=== PATIENT | male | born 1965 | race American Indian/Alaskan Native ===

== ENCOUNTER 2020-02-26 05:52 | Day surgery (SDC) | payer OTHER ==
[2020-02-26] MEDS ORDERED: MIDAZOLAM 2 MG/2 ML INJ IV NR (06:00)
[2020-02-26] MEDS ORDERED: ceFAZolin/Water 2 GM/20 ML 2 GM/20 ML SYRINGE IV NR (06:00)
[2020-02-26] MEDS ORDERED: LACTATED RINGERS 1,000 ML IV SCH (06:00)
[2020-02-26] MEDS ORDERED: BACTERIOSTATIC SODIUM CHLORIDE 0.9% 30 ML VIAL INFILTRATI ONE (06:25)
--- NOTE | 2020-02-26 06:44 | Anesthesia Day of Surgery ---
Anesthesia Day of Surgery - Day of Surgery Patient Examined: Yes Patient H&P Reviewed: Yes Patient is NPO: Yes Beta Blockers: No Cardiac Clearance: No Pulmonary Clearance: No Quang's Test: N/A
--- NOTE | 2020-02-26 06:46 | Anesthesia Consultation ---
Anesthesia Consult and Med Hx Date of service: 02/26/20 - Airway Anesthetic Teeth Evaluation: Poor, Chipped ROM Head & Neck: Adequate Mental/Hyoid Distance: Adequate Mallampati Class: Class III Intubation Access Assessment: Probably Good - Pulmonary Exam CTA: Yes - Cardiac Exam Cardiac Exam: RRR - Pre-Operative Health Status ASA Pre-Surgery Classification: ASA2 Proposed Anesthetic Plan: General Nerve Block: Pop - Pre-Anesthesia Comment Pre-Anesthesia Comments: surgeon discretion on block type - Pulmonary Hx Smoking: Yes (STOPPED X 10 YRS) Hx Sleep Apnea: No (PEDRITO PRE SCREEN HIGH RISK) - Cardiovascular System Hx Hypertension: Yes (X 2 YRS) Hx Heart Attack/AMI: No Hx Angina: No - Central Nervous System Hx Psychiatric Problems: No - Gastrointestinal Hx Gastroesophageal Reflux Disease: No - Endocrine Hx Renal Disease: No Hx Insulin Dependent Diabetes: No Hx Non-Insulin Dependent Diabetes: Yes - Other Systems Hx Cancer: No - Additional Comments Anesthesia Medical History Comments: cataracts
[2020-02-26] MEDS ORDERED: NALOXONE 0.4 MG/1 ML INJ IV PRN (06:47)
[2020-02-26] MEDS ORDERED: oxyCODONE /ACETAMINOPHEN 5-325MG TAB PO PRN (06:47)
[2020-02-26] MEDS ORDERED: MEPERIDINE 25 MG/1 ML INJ IV PRN (06:47)
[2020-02-26] MEDS ORDERED: fentaNYL 100 MCG/2 ML INJ IV PRN (06:47)
[2020-02-26] MEDS ORDERED: ONDANSETRON 4 MG/2 ML INJ IV PRN (06:47)
[2020-02-26] MEDS ORDERED: fentaNYL 100 MCG/2 ML INJ ONE (07:09)
[2020-02-26] MEDS ORDERED: propofoL 200 MG/20 ML VIAL IV ONE (07:10)
[2020-02-26] MEDS ORDERED: LIDOCAINE MPF (2%) 20 MG/1 ML VIAL 5 ML ONE (07:11)
[2020-02-26] MEDS ORDERED: BACITRACIN ZINC OINT 28.4 GM TP ONE ×2 (07:37→07:38)
[2020-02-26] MEDS ORDERED: GENTAMICIN 40 MG/ML VIAL 2 ML ONE (07:37)
[2020-02-26] MEDS ORDERED: BUPIVACAINE/PF (0.25%) 2.5 MG/ML 30 ML VIAL INFILTRATI ONE (07:37)
[2020-02-26] MEDS ORDERED: LIDOCAINE (1%) 10 MG/1 ML VIAL 20 ML MDV ONE (07:37)
[2020-02-26] MEDS ORDERED: MIDAZOLAM 2 MG/2 ML INJ ONE (07:45)
[2020-02-26] MEDS ORDERED: ONDANSETRON 4 MG/2 ML INJ ONE (07:56)
[2020-02-26] MEDS ORDERED: KETOROLAC 30 MG/1 ML INJ ONE (07:56)
[2020-02-26 09:58] VITALS: BP 112/70
--- NOTE | 2020-02-26 10:41 | Post Anesthesia Evaluation ---
- Post Anesthesia Evaluation Patient Participated: Yes Airway Patent: Yes Stable Respiratory Function: Yes Nausea/Vomiting: No Temp > 96.8F: Yes Pain Manageable: Yes Adequeate Hydration: Yes Anesthesia Complications: No
--- NOTE | 2020-03-04 11:18 | Operative Report ---
PREOPERATIVE DIAGNOSIS: Aggressive soft tissue mass unknown, left foot. POSTOPERATIVE DIAGNOSIS: Aggressive soft tissue mass unknown, left foot. PROCEDURE: Aggressive excision of unknown soft tissue mass with transition of the flap, left foot. ANESTHESIA: Local with monitored anesthesia care. TOURNIQUET: Pneumatic ankle tourniquet, left ankle. ESTIMATED BLOOD LOSS: Less than 10 mL. DESCRIPTION OF PROCEDURE: The patient was brought into the operating room, placed on the operating table, placed on the table in a supine position. After intravenous sedation, the patient was given 2 grams of Ancef prophylactically. At this time, a well-padded pneumatic ankle tourniquet was placed 2-3 cm proximal to both the lateral and medial malleoli. At this time, the surgery was begun after careful local anesthesia consisting of 12 mL of 1:1 mixture of 1% lidocaine plain plus 0.5% Marcaine plain being infiltrated into the affected site. At this time, the foot was then scrubbed, prepped and draped in the usual aseptic manner and thus the procedure was begun. At this time, an Esmarch was used to exsanguinate the foot and the tourniquet was set at 250 mmHg. At this time, 2 nodules in nature was noted at the plantar medial arch of the left foot prominent nonmobile with use of skin scribe. A lazy S incision was thus made approximately 8 cm in length. At this time with the use of a 10-blade, careful dissection was used to make the initial incision with care being taken to cauterize all vessels as needed. At this time, careful dissection was down to the deep fascia and a long plantar ligament and 2 large nonmobile masses were identified, rubbery in nature, dark to light green in color, was dissected and removed from the operative field. Let it be noted, deep cultures was performed, aerobic, anaerobic and fungal and specimens were sent to the laboratory for both identification ____. At this time, there was noted to be a deficit. The area was pulse lavaged with gentamicin mix and due to the substantial in nature and location of the mass, the skin was manipulated in which it was transposition distally to incorporate the defect. At this time, both 3-0 and 4-0 Prolene was thus used after deep closure with 3-0 and 4-0 Vicryl. The area was reapproximated with both horizontal and simple interrupted stitches. A 1 mL of dexamethasone phosphate was infiltrated into the affected area. The area was dressed with Adaptic after bacitracin ointment was applied, Akira Kerruby and Coban. Pneumatic ankle tourniquet was deflated. A prompt hyperemic response was noted to all digits of the affected foot after deflation of the tourniquet. The patient will be placed in a walking boot or surgical shoe, will be transferred to recovery with vital signs will be monitored. The patient will be discharged home with both written and oral postoperative instructions. JOB# [id number] TOMMIE/LISA
== END 2020-02-26 05:53 | disposition home or self-care (01) ==
LOC: OR 05:52
PROVIDERS: ATTEND Podiatrist Foot & Ankle Surgery
DX: M79.89 Other specified soft tissue disorders (principal); M72.2 Plantar fascial fibromatosis; Z20.828 Contact with and (suspected) exposure to other viral communicable diseases; I10 Essential (primary) hypertension; E11.9 Type 2 diabetes mellitus without complications; Z98.890 Other specified postprocedural states; Z91.040 Latex allergy status; Z79.899 Other long term (current) drug therapy; Z79.84 Long term (current) use of oral hypoglycemic drugs; Z87.891 Personal history of nicotine dependence; Z88.8 Allergy status to other drugs, medicaments and biological substances; Z98.49 Cataract extraction status, unspecified eye
CPT/HCPCS: 28060; 82962; 87075; 87116; 88305; 88341; 88342; J0690; J1580; J1885; J2250; J2405; J2704; J3010; J7120; U0003; 88307

== ENCOUNTER 2020-03-13 05:57 | Day surgery (SDC) | payer OTHER ==
[2020-03-13] MEDS ORDERED: MIDAZOLAM 2 MG/2 ML INJ IV NR (06:00)
[2020-03-13] MEDS ORDERED: LACTATED RINGERS 1,000 ML IV SCH (06:00)
[2020-03-13] MEDS ORDERED: ceFAZolin/STERILE WATER 2 GM/20 ML SYRINGE IV NR (06:27)
[2020-03-13] MEDS ORDERED: BACTERIOSTATIC SODIUM CHLORIDE 0.9% 30 ML VIAL INFILTRATI ONE (06:31)
[2020-03-13] MEDS ORDERED: BUPIVACAINE/PF (0.25%) 2.5 MG/ML 30 ML VIAL INFILTRATI ONE ×2 (07:10→08:29)
[2020-03-13] MEDS ORDERED: LIDOCAINE (1%) 10 MG/1 ML VIAL 20 ML MDV ONE (07:10)
[2020-03-13] MEDS ORDERED: BACITRACIN ZINC OINT 28.4 GM TP ONE (07:10)
[2020-03-13] MEDS ORDERED: GENTAMICIN 40 MG/ML VIAL 2 ML ONE (07:12)
[2020-03-13] MEDS ORDERED: LIDOCAINE MPF (2%) 20 MG/1 ML VIAL 5 ML ONE (07:21)
[2020-03-13] MEDS ORDERED: ONDANSETRON 4 MG/2 ML INJ ONE (07:21)
[2020-03-13] MEDS ORDERED: HYDROmorphone 1 MG/1 ML INJ ONE (07:21)
[2020-03-13] MEDS ORDERED: propofoL 200 MG/20 ML VIAL IV ONE (07:22)
--- NOTE | 2020-03-13 07:26 | Anesthesia Consultation ---
Anesthesia Consult and Med Hx Date of service: 03/13/20 - Airway Anesthetic Teeth Evaluation: Good (missing teeth ) ROM Head & Neck: Adequate Mental/Hyoid Distance: Adequate Mallampati Class: Class III Intubation Access Assessment: Possibly Difficult - Pulmonary Exam CTA: Yes - Cardiac Exam Cardiac Exam: RRR - Pre-Operative Health Status ASA Pre-Surgery Classification: ASA2 Proposed Anesthetic Plan: MAC - Pulmonary Hx Smoking: Yes (STOPPED X 10 YRS) Hx Respiratory Symptoms: No Hx Sleep Apnea: No (PEDRITO PRE SCREEN HIGH RISK) - Cardiovascular System Hx Hypertension: Yes (took olmesartan this morning) Hx Heart Attack/AMI: No - Central Nervous System CVA: No - Gastrointestinal Hx Gastroesophageal Reflux Disease: No - Endocrine Hx Renal Disease: No Hx Liver Disease: No Hx Insulin Dependent Diabetes: No Hx Non-Insulin Dependent Diabetes: Yes Hx Thyroid Disease: No - Other Systems Hx Obesity: No - Additional Comments Anesthesia Medical History Comments: Had similar procedure 02/26/2020 under [facility] without complications.
--- NOTE | 2020-03-13 07:26 | Anesthesia Day of Surgery ---
Anesthesia Day of Surgery - Day of Surgery Patient Examined: Yes Patient H&P Reviewed: Yes Patient is NPO: Yes
[2020-03-13] MEDS ORDERED: KETAMINE/STERILE WATER 50 MG/ML SYRINGE ONE (07:49)
[2020-03-13] MEDS ORDERED: HYDROcodone/ACETAMINOPHEN 5-325 MG TAB PO PRN (08:00)
[2020-03-13] MEDS ORDERED: fentaNYL 100 MCG/2 ML INJ IV PRN (08:00)
[2020-03-13] MEDS ORDERED: ONDANSETRON 4 MG/2 ML INJ IV PRN (08:00)
[2020-03-13] MEDS ORDERED: GENTAMICIN 40 MG/ML VIAL 2 ML IV ONE (08:28)
[2020-03-13] MEDS ORDERED: LIDOCAINE (1%) 10 MG/1 ML VIAL 20 ML MDV INFILTRATI ONE (08:29)
[2020-03-13] MEDS ORDERED: dexAMETHasone 4 MG/ML VIAL ONE (08:31)
[2020-03-13] MEDS ORDERED: KETOROLAC 30 MG/1 ML INJ IV SCH (09:00)
[2020-03-13] MEDS ORDERED: KETOROLAC 30 MG/1 ML INJ ONE (09:06)
[2020-03-13 09:41] VITALS: BP 137/78
--- NOTE | 2020-03-19 09:48 | Operative Report ---
PREOPERATIVE DIAGNOSIS: Painful unknown soft tissue mass, right foot. POSTOPERATIVE DIAGNOSIS: Painful unknown soft tissue mass, right foot. SURGICAL PROCEDURE: Removal of unknown soft tissue mass with transitional flap, right foot. SURGEON: Nawaf Childress DPM ANESTHESIA: Monitored anesthesia care with IV sedation. TOURNIQUET: Pneumatic ankle tourniquet. ESTIMATED BLOOD LOSS: Less than 20 mL. DESCRIPTION OF PROCEDURE: The patient was brought into the operating room, placed on the operating table in supine position. Following intravenous sedation, the patient was given 2 grams of Ancef prophylactically. At this time, after adequate application of a pneumatic ankle tourniquet, 2-3 cm proximal to both the medial and lateral malleoli. At this time, the procedure was thus started after cleansing the plantar foot with alcohol and injecting 12 mL of a 1:1 mixture of 1% lidocaine plain plus 0.25% Marcaine plain into the affected site. At this time, the foot was then scrubbed, prepped and draped in the usual aseptic manner and Esmarch was used to exsanguinate the foot to 250 mmHg and the procedure was thus begun. At this time, there was noted to be nodules nonmobile to the nature at the plantar aspect of the right foot. At this time, a lazy S incision was thus made with a curvilinear direction extending laterally to incorporate advanced flap. At this time, the area was carried deepened with both sharp and blunt dissection and cauterized all vessels as needed. There was noted to be a grayish discolored mass proximally and the smaller mass distally with use of an Allis. The proximal mass was ____ while dissected and passed from the operative field to be sent to the laboratory for further diagnosis evaluation. Same was performed for the distal mass. The base of the area was cauterized to stop bleeding to the affected area. The area was flushed copiously with gentamicin mix 1000 mL. At this time, deep cultures were performed prior to gentamicin mix of the affected area. Specimens will be sent to the laboratory for further diagnosis and evaluation. At this time, there was noted to be a defect. Therefore, the deep tissue was undermined. The flap was rotated distally and reapproximated with both simple and interrupted horizontal stitches with both 3-0 Prolene and 4-0 Prolene. A 1 mL of dexamethasone phosphate was infiltrated into the affected site. Let it be noted after deflation of the tourniquet, there was noted to be good hyperemic response. Let it be noted that the area was dressed with bacitracin ointment, Adaptic and sterile compressive dressing. The patient tolerated the procedure and anesthesia well and will be transferred to recovery and given both written and oral instructions. The patient will be weightbearing to tolerance. JOB# [id number] TLD/NTS
== END 2020-03-13 05:58 | disposition home or self-care (01) ==
LOC: OR 05:57
PROVIDERS: ATTEND Podiatrist Foot & Ankle Surgery
DX: M79.89 Other specified soft tissue disorders (principal); M72.2 Plantar fascial fibromatosis; I10 Essential (primary) hypertension; E11.9 Type 2 diabetes mellitus without complications; Z87.891 Personal history of nicotine dependence; Z91.040 Latex allergy status; Z88.8 Allergy status to other drugs, medicaments and biological substances; Z79.84 Long term (current) use of oral hypoglycemic drugs; Z79.899 Other long term (current) drug therapy; Z98.41 Cataract extraction status, right eye; Z98.42 Cataract extraction status, left eye; Z98.890 Other specified postprocedural states
CPT/HCPCS: 28060; 82962; 87075; 87116; 88307; J0690; J1100; J1170; J1580; J1885; J2250; J2405; J2704; J3490; J7120